=== PATIENT | male | born 1980 | race Two or more races ===

== ENCOUNTER 2024-12-19 03:23 | Emergency (ER) | payer OTHER ==
[~2024-12-19] VITALS: Ht 172.7 cm; Wt 74.8 kg
[2024-12-19] MEDS ORDERED: KETOROLAC TROMETHAMINE INJ 30 MG/ML VIAL ONE (04:31)
[2024-12-19] MEDS: KETOROLAC TROMETHAMINE INJ 30 MG/ML VIAL IM ONE (04:32)
[2024-12-19] MEDS ORDERED: KETO10TA2 PO (05:59)
[2024-12-19 06:09] VITALS: BP 124/80; TEMP 98.6; O2SAT 98
== END 2024-12-19 06:10 | disposition home or self-care (01) ==
LOC: ER 03:23
DX: M25.512 Pain in left shoulder (principal); E11.9 Type 2 diabetes mellitus without complications; V89.2XXA Person injured in unspecified motor-vehicle accident, traffic, initial encounter; Y93.89 Activity, other specified; Y92.410 Unspecified street and highway as the place of occurrence of the external cause; Y99.8 Other external cause status
CPT/HCPCS: 99284; 71045; 96372; 73030; J1885